=== PATIENT | female | born 1960 | race Two or more races ===

== ENCOUNTER 2025-03-06 17:10 | Emergency (ER) | payer OTHER ==
[~2025-03-06] VITALS: Ht 170.2 cm; Wt 65.8 kg
[2025-03-06] MEDS ORDERED: TRAMADOL HCL 50 MG TABLET PO ONE (17:30)
[2025-03-06] MEDS ORDERED: KETO10TA2 PO (19:32)
== END 2025-03-06 21:38 | disposition home or self-care (01) ==
LOC: ER 17:10
DX: S82.492A Other fracture of shaft of left fibula, initial encounter for closed fracture (principal); W18.39XA Other fall on same level, initial encounter; Y93.89 Activity, other specified; Y92.89 Other specified places as the place of occurrence of the external cause; H40.89 Other specified glaucoma; E78.00 Pure hypercholesterolemia, unspecified